=== PATIENT | female | born 1985 | race Caucasian/White ===

== ENCOUNTER 2016-04-24 19:13 | Emergency (ER) | payer OTHER ==
[2016-04-24 19:21] VITALS: BP 155/85
--- NOTE | 2016-04-24 19:37 | PROVIDER DOCUMENTATION ---
HPI-Headache - General Source: patient - History of Present Illness-Headache Headache Location: reports: frontal Quality of Pain: reports: aching, throbbing Severity: reports: moderate Onset/Duration: reports: 24 hours ago Timing: reports: still present Headache Context: reports: nothing Headache History: reports: chronic headaches Any recent trauma/injury?: reports: none Headache severity at the maximum: moderate Preceding Symptoms: reports: none Headache Exacerbated by:: reports: light, noise, movement Modifying Factors: improves with: nothing Associated Symptoms: reports: headache, nausea. denies: decreased ability to walk or stand, fainting, slurred speech, vomiting, vision changes Similar Symptoms Previously?: Yes Recently seen or treated by another doctor?: No <Chary Roman - Last Filed: 04/24/16 19:33> <Guanaco Thomason - Last Filed: 04/24/16 19:51> - General Chief Complaint: Headache Stated Complaint: HEADACHE Time Seen by Provider: 04/24/16 19:33 Allergies/Adverse Reactions: Patient Allergies Allergy/AdvReac Type Severity Reaction Status Date / Time latex Allergy RASH Verified 12/19/15 15:57 metoclopramide HCl * Allergy FATIGUE Verified 12/19/15 15:57 [From Reglan] sumatriptan [From Imitrex] Allergy SWELLING Verified 12/19/15 15:57 sumatriptan succinate * Allergy SWELLING Verified 12/19/15 15:57 [From Imitrex] Home Medications: Home Medication List Medication Instructions Recorded Confirmed Last Taken Type Metformin [Glucophage] 1,000 mg PO DAILY 05/15/14 04/24/16 02/06/16 08:00 History Spironolactone 100 mg PO BID 05/15/14 04/24/16 02/05/16 20:00 History Cholecalciferol (Vit D3) [Vitamin 5,000 unit PO QAM 08/14/14 04/24/16 02/05/16 21:00 History D3] Epinephrine [Epipen 2-Adonay] 0.3 mg IM PRN PRN 04/24/16 04/24/16 Unknown History Ketorolac [Toradol] 10 mg PO Q6H PRN PRN #6 tablet 04/24/16 Unknown Rx Sitagliptin [Januvia] 50 mg PO DAILY 04/24/16 04/24/16 Unknown History - History of Present Illness-Headache Nature of Presenting Problem: PT IS A 30YOF PRESENTING TO THE ED C/O MIGRAINE. PT STATES ALL HER TRICKS AT HOME ARENT HELPING AT ALL. PT STATES SHES TAKEN OTC MEDS AND DRANK GATORADE AND THAT NORMALLY HELPS. PT STATES THIS IS LIKE PREVIOUS MIGRAINES SHES SENSITIVE TO LIGHTS, NOISE AND MOVEMENT. NO OTHER COMPLAINTS NOTED AT THIS TIME (TennareshChary) Past History - Adult - PAST MEDICAL HISTORY-ADULT Major Childhood Illnesses: reports: denies history Cardiovascular: reports: denies history Respiratory: reports: denies history Gastrointestinal: reports: denies history Obstetrical/Gynecological: reports: other (PCOS) Genitourinary: reports: denies history Musculoskeletal: reports: denies history Neurological: reports: headaches/migraines Endocrine/Immune: reports: Diabetes (borderline) Other Conditions: reports: denies history - PRIOR SURGERIES/PROCEDURES Surgical/Procedure History: reports: appendectomy, cholecystectomy, , orthopedic (extremity) - PRIOR HOSPITALIZATIONS Prior Hospitalizations: reports: other - IMMUNIZATION STATUS Childhood Immunizations: See Nurse Assessment Flu Vaccine: See Nurse Assessment - FAMILY HISTORY Family History: reviewed, not pertinent <JessieChary - Last Filed: 04/24/16 19:33> Departure <JessieChary - Last Filed: 04/24/16 19:33> - Departure Time of Disposition Order: 19:51 Certified Medical Emergency: Emergent <Guanaco Thomason - Last Filed: 04/24/16 19:51> - Departure DIAGNOSIS: Migraine Qualifiers: Migraine type: unspecified Status migrainosus presence: without status migrainosus Intractability: not intractable Qualified Code(s): G43.909 - Migraine, unspecified, not intractable, without status migrainosus Disposition: HOME 01 Condition: Stable Additional Instructions: ED Follow Up Instructions: You have been treated by a care provider in the Emergency Department. These instructions are being provided to you so you can have an understanding of how to care for yourself upon discharge. Upon discharge from the Emergency Department, you are responsible for making arrangements for follow-up care by a physician of your choice. Take all prescribed medications as directed. Return to the Emergency Department immediately for any new or worsening symptoms. You may call the Physician Referral phone number at [phone] to obtain a list of Physicians who are taking new patients. Prescriptions: Ketorolac [Toradol] 10 mg PO Q6H PRN PRN #6 tablet PRN Reason: Pain Physician Attestation
[2016-04-24] MEDS ORDERED: TORADOL IM ONE (19:50)
[2016-04-24] MEDS ORDERED: PHENERGAN IM ONE (19:50)
== END 2016-04-24 20:15 | disposition home or self-care (01) ==
LOC: P.ED 19:13
DX: G43.909 Migraine, unspecified, not intractable, without status migrainosus (principal); R51 Headache; E28.2 Polycystic ovarian syndrome; R73.03 Prediabetes; Z79.899 Other long term (current) drug therapy
CPT/HCPCS: 96372; J1885; J2550